=== PATIENT | female | born 1985 | race Caucasian/White ===

== ENCOUNTER 2019-08-06 17:35 | Emergency (ER) | payer BC ==
[~2019-08-06] VITALS: Ht 172.7 cm; Wt 73.2 kg
[2019-08-06 17:40] VITALS: Ht 172.7 cm; Wt 73.2 kg
[2019-08-06] MEDS ORDERED: KETOROLAC 30 MG INJ IM STA (17:50)
[2019-08-06] MEDS ORDERED: DIPHTH/TET/ACEL PERTUSS (ADULT) 0.5 ML VIAL IM* ONE (18:30)
[2019-08-06 20:00] VITALS: BP 119/79; PULSE 92; RESP 18
== END 2019-08-06 20:00 | disposition home or self-care (01) ==
LOC: E/R 17:35
DX: S61.411A Laceration without foreign body of right hand, initial encounter (principal); S20.312A Abrasion of left front wall of thorax, initial encounter; R10.30 Lower abdominal pain, unspecified; R51 Headache; V49.49XA Driver injured in collision with other motor vehicles in traffic accident, initial encounter; Z23 Encounter for immunization
CPT/HCPCS: 12001; 70450; 71250; 73130; 73610; 74176; 81025; 90471; 90715; 96372; J1885; Z7502